=== PATIENT | female | born 2000 | race Caucasian/White ===

== ENCOUNTER 2024-01-26 13:38 | Outpatient (CLI) | payer BC, SELFPAY ==
--- NOTE | ~2024-01-26 | US_ITS ---
EXAMINATION: US soft tissue head and neck DATE: 01/26/2024 13:54 INDICATION: Mass at the posterior right side of the neck TECHNIQUE: Multiple grayscale and Doppler ultrasound images of the region of concern at the posterior right neck were obtained. COMPARISON: None FINDINGS: There is a 13 x 10 x 4 mm lenticular hypoechoic mass in the subcutaneous tissues at the region of con cern which is isoechoic and with similar echotexture to the surrounding subcutaneous fat which would be most consistent with and statistically most likely to represent a lipoma. No other abnormal masses or fluid collections identified. IMPRESSION: 1. Nonspecific 13 x 10 x 4 mm subcutaneous mass at the region of concern most likely representing a l ipoma. Reviewed, dictated and finalized at location A. IMPRESSION: 1. Nonspecific 13 x 10 x 4 mm subcutaneous mass at the region of concern most l ikely representing a lipoma.
== END 2024-01-26 13:39 | disposition home or self-care (01) ==
LOC: GOSHIMG 13:39
PROVIDERS: PCP Registered Nurse; Visit Provider Registered Nurse
DX: R22.1 Localized swelling, mass and lump, neck (principal)
CPT/HCPCS: 76536

== ENCOUNTER 2024-09-28 12:43 | Outpatient (CLI) | payer BC, SELFPAY ==
--- NOTE | ~2024-09-28 | MR_ITS ---
EXAMINATION: MR orbits face neck wo/w con DATE: 09/28/2024 13:49 INDICATION: Neck mass TECHNIQUE: Magnetic resonance imaging (MRI) of the neck was performed without and with 15 mL Multihan ce intravenous contrast. A marker was placed over the mass. Sequences included axial, sagittal and c oronal T1-weighted FSE and fluid sensitive FSE STIR, axial T1-weighted FS FSE and postcontrast axial, sagittal and coronal T1-weighted FS FSE. COMPARISON: Ultrasound dated 01/26/2024 FINDINGS: There are multiple mildly prominent but still normal-sized cervical lymph nodes along the bilateral j ugular chains and posterior cervical triangles. The elbow abnormality of concern appears to correspon d to one of the larger and more superficial lymph node the right posterior cervical triangle which me asures 1.7 x 0.9 x 0.5 cm. This appears to correspond in size and location with the lesion identified on prior ultrasound. The largest lymph nodes are seen at the bilateral high jugular chains, each yovani suring 8 mm in maximal short axis diameter which is within normal limits. No lipomas or other abnorma l masses or fluid collections identified. Bilateral parotid and submandibular glands are normal and s ymmetric. Thyroid is normal. Cervical spine is unremarkable. IMPRESSION: 1. Multiple mildly prominent but still normal-sized bilateral cervical lymph nodes along the jugular chains and posterior cervical triangles which are likely reactive including one in the right posterio r cervical triangle which appears to correspond to the palpable abnormality of concern. Reviewed, dictated and finalized at location A. IMPRESSION: 1. Multiple mildly prominent but still normal-sized bilateral cervical lymph no dario along the jugular chains and posterior cervical triangles which are likely reactive including one in the right posterior cervical triangle which appears t o correspond to the palpable abnormality of concern.
--- NOTE | ~2024-09-28 | MR_ITS ---
MRI of the brain Clinical History: Headache Technique: Axial and sagittal T1-weighted images were acquired. These were followed by axial T2-weigh mahin, diffusion weighted, gradient, and FLAIR images. Findings: There is no abnormal signal in the brain parenchyma. No acute infarct, intracranial hemorrh age, or mass lesion seen. Ventricles and subarachnoid spaces are unremarkable. Orbits are unremarkable. Paranasal sinuses and m astoid air cells are clear. Major intracranial flow voids are intact. Sagittal midline structures are intact. IMPRESSION: Unremarkable exam. Reviewed, dictated and finalized at location M. IMPRESSION: Unremarkable exam.
== END 2024-09-28 12:44 | disposition home or self-care (01) ==
LOC: MICIMG 12:43
PROVIDERS: PCP Registered Nurse; Visit Provider Registered Nurse
DX: R51.9 Headache, unspecified (principal)
CPT/HCPCS: 70543; 70551; A9577